=== PATIENT | female | born 1975 | race Caucasian/White ===

== ENCOUNTER 2017-07-10 07:21 | Day surgery (SDC) | payer OTHER, SELFPAY ==
[~2017-07-10] VITALS: Ht 175.3 cm; Wt 110.0 kg
== END 2017-07-10 23:11 | disposition home or self-care (01) ==
LOC: MHTC 07:21
PROC: 3E033TZ Introduction of Destructive Agent into Peripheral Vein, Percutaneous Approach (ICD-10-PCS; principal; 2017-07-10)
DX: I83.813 Varicose veins of bilateral lower extremities with pain (principal); I87.2 Venous insufficiency (chronic) (peripheral)
CPT/HCPCS: 36465; 99152; 99153; J2250; J3010; J7040